=== PATIENT | female | born 1990 | race Two or more races ===

== ENCOUNTER 2025-02-21 11:55 | Emergency (ER) | payer MEDICAID, SELFPAY ==
[2025-02-21 11:56] VITALS: BP 122/78; PULSE 78; RESP 16; TEMP 36.6; O2SAT 99; BMI 23.1
--- NOTE | 2025-02-21 12:31 | EDNOTE_ITS ---
ED Wound/Laceration-RME/HPI General Chief Complaint: Wound/Laceration Stated Complaint: LAC TO R 5TH DIGIT Time Seen by Provider: 02/21/25 11:58 Arrival date/time: 02/21/25 11:55 RME / HPI RME / HPI narrative: 34-year-old female patient came in for evaluation regarding laceration to the right pinky finger. Patient was washing dishes, and sustained 1 cm gaping laceration to the right pinky finger. Lateral aspect. Patient is able to bend and extend the finger without any limitation. No active bleeding noted tetanus vaccination is unknown Related Data Home Medications ?Medication ?Instructions ?Recorded ?Confirmed acetaminophen 325 mg tablet 325 mg PO QID PRN 06/08/23 06/08/23 (Tylenol) Previous Rx's ?Medication ?Instructions ?Recorded albuterol sulfate 90 mcg/actuation 2 inh inhalation Q6 H PRN shortness 06/08/23 aerosol inhaler of breath or wheezing #6.7 g kristina Allergies Allergy/AdvReac Type Severity Reaction Status Date / Time ibuprofen Allergy Unknown Swelling Verified 06/08/23 10:07 of Lip/Tongue/Throat Review of Systems Review of Systems Narrative Review of Systems: Review of system reviewed and within normal limits except mentioned in HPI ED Exam Narrative Physical exam: VITAL SIGNS: Reviewed. GENERAL APPEARANCE: Alert and interactive, follows commands, no acute distress, HEAD AND FACE: Non-traumatic. RECTAL: Deferred. GENITAL: Deferred. NEUROLOGICAL: Gross motor function intact sensory function intact, Appropriate for age. MUSCULOSKELETAL: low back nontender, full range of motion. EXTREMITIES: Nontender, full range of motion. SKIN: Color pink, dry, no rash, +1 cm laceration, finger lateral aspect full range of motion of the5th finger no abrasions, no contusions. LYMPHATICS: Deferred. Course Quality Measures none Orders Category Date Time Status Acetaminophen Tab [Tylenol ES Tab] Med 02/21/25 12:29 Once 1,000 mg PO X1 ONE TET,DIP/PERT AC (Adult)-Tdap [Boostrix Adult (Tdap) Med 02/21/25 12:29 Once Vacc] 0.5 ml IMI .ONCE ONE Wound / Laceration MDM Narrative MDM Narrative:: 34-year-old female patient came in for evaluation regarding laceration to the right pinky finger. Patient was washing dishes, and sustained 1 cm gaping laceration to the right pinky finger. Lateral aspect. Patient is able to bend and extend the finger without any limitation. No active bleeding noted tetanus vaccination is unknown Laceration was cleansed with NS, and Betadine, and sterile strip applied. Glue was also applied. Dressing applied also. Patient tolerated procedure well. Patient received Boostrix and Tylenol Patient data External records reviewed:: None Clinical information provided by:: patient Social determinants that could affect healthcare access:: none Patient has the following chronic illnesses:: None How is presenting disease/condition affected by chronic disease/condition?: no chronic disease Evaluation data The following diagnostics were reviewed and interpreted by me:: other (specify) (None) Lab and/or radiology exams considered but not ordered:: None Interpretation Summary: None Medications / Prescriptions Medications or Prescriptions considered but not ordered:: None Medication administrations:: None Consultations Consultation(s) initiated? (list below): No Diagnosis Wound Differential Diagnosis: laceration, abrasion and avulsion of skin Most likely diagnosis given after review of the tests above:: Right pinky finger laceration Admission Indicated Admission indicated?: not indicated Admission Request Was there a request for admission?: No Disposition Plan Disposition Plan: Discharge Discharge Attestation Discharge Attestation: Discharge instructions specifically effects, indications for sooner follow up or return to the emergency department, and the expected course of current diagnosis. Patient condition: Stable Discharge Plan Plan Patient Disposition: HOME (Self Care) Discharge Disposition comment: Stable Prescriptions/Referrals Prescriptions/Med Rec: No Action acetaminophen [Tylenol] 325 mg tablet 325 mg PO QID PRN albuterol sulfate 90 mcg/actuation HFA aerosol inhaler 2 inh inhalation Q6H PRN (Reason: shortness of breath or wheezing) Qty: 6.7 0RF Problem List Clinical Impression: Finger laceration Patient/Caregiver Discharge Instructions Discharge Activity: activity as tolerated Education Materials: ED Laceration: Skin Adhesive Additional Instructions: Thank you for the opportunity for serving you today. You are stable for discharged . You are advised to: Follow-up with your PCP in 1 to 2 days Return to ED for worsening of symptoms Increase oral fluids Do not get your laceration wet for the next 5 days, do not remove the sterile strip until it falls off Print Language: Estonian Stand Alone Forms: [facility] Award Info., Patient Portal Info Letter PA/PHOSPHORUS PROCESSING SUPERVISOR Supervising Physician PA/PHOSPHORUS PROCESSING SUPERVISOR Supervising Physician: MD Radha
[2025-02-21] MEDS: ACETAMINOPHEN 500 MG TABLET 1000 MG PO (12:35)
== END 2025-02-21 12:53 | disposition home or self-care (01) ==
PROVIDERS: Emergency Provider Family Medicine
DX: S61.216A Laceration without foreign body of right little finger without damage to nail, initial encounter (principal); W26.8XXA Contact with other sharp object(s), not elsewhere classified, initial encounter; Y93.G1 Activity, food preparation and clean up
CPT/HCPCS: 99282; A9270